=== PATIENT | male | born 1990 | race Caucasian/White ===

== ENCOUNTER 2020-11-19 18:54 | Emergency (ER) | payer MEDICAID ==
[~2020-11-19] VITALS: Ht 172.7 cm; Wt 154.2 kg
[2020-11-19 18:57] VITALS: BP 136/80
--- NOTE | 2020-11-19 19:33 | NUR ---
PT AMBULATED TO ER BED 3
--- NOTE | 2020-11-19 19:58 | NUR ---
MD TROY AT BEDSIDE WITH PT.
--- NOTE | 2020-11-19 19:58 | NUR ---
PT COMING IN TODAY WITH C/O URINARY FREQUENCY X 1.5 WEEKS. DENIES ANY PAIN WITH URINATION, NO FEVERS, NO BLOOD IN URINE. PT STATES HE WAS JUST TESTED FOR DIABETES IN [place]PT[place] AND EVERYTHING WAS NORMAL. PT IS A [employer] AND THINKS THIS MIGHT HAVE SOMETHING TO DO WITH IT. ABD SOFT, NONTENDER. PT PLACED IN GOWN, BED IN LOWEST POSITION AND SIDERAIL UP X 1. HX - ASTHMA, ALLERGIES NKA
[2020-11-19 20:16] LABS: APPEARANCE,URINE CLEAR (CLEAR); BILIRUBIN,URINE NEGATIVE (NEGATIVE); BLOOD, URINE NEGATIVE (NEGATIVE); COLOR,URINE YELLOW (YELLOW); LEUKOCYTE ESTERASE ,URINE NEGATIVE (NEGATIVE); NITRITE, URINE NEGATIVE (NEGATIVE); UGLUCOSE NEGATIVE (NEGATIVE)
[2020-11-19 21:25] VITALS: BP 138/79
--- NOTE | 2020-11-19 21:26 | NUR ---
Patient discharged with v/s stable. Written and verbal after care instructions given and explained. Patient verbalized understanding. Ambulatory with steady gait. All questions addressed prior to discharge. Advised to follow up with PMD.
== END 2020-11-19 21:26 | disposition home or self-care (01) ==
LOC: MED 18:54
DX: R35.8 Other polyuria (principal); J45.909 Unspecified asthma, uncomplicated
CPT/HCPCS: 36415; 81003; 99283